=== PATIENT | female | born 1990 | race Caucasian/White ===

== ENCOUNTER 2018-10-31 03:10 | Inpatient (IN) | payer OTHER ==
[2018-10-31] MEDS ORDERED: DEXTROSE 5%-LACTATED RINGERS 1,000 ML IV SCH (04:30)
[2018-10-31 04:40] VITALS: BMI 25.8
[2018-10-31] MEDS ORDERED: AMPICILLIN - 2 GM in SODIUM CHLORIDE 100 ML IVPB ONE (04:45)
[2018-10-31] MEDS ORDERED: AMPICILLIN SODIUM 2 GM VIAL ONE (04:45)
[2018-10-31] MEDS ORDERED: OXYTOCIN 20 UNITS in 0.9% NS 20 UNIT/1,000 ML INFUS.BAG IV ONE ×2 (05:23→09:05)
[2018-10-31] MEDS ORDERED: LIDOCAINE HCL 1% PRESERVATIVE FREE - 30ML VIAL ONE (05:23)
[2018-10-31] MEDS: OXYTOCIN 20 UNITS in 0.9% NS 20 UNIT/1,000 ML INFUS.BAG IV SCH ×2 (05:35→09:16)
[2018-10-31] MEDS ORDERED: METHYLERGONOVINE MALEATE 0.2 MG/1 ML AMP IM PRN (05:43)
[2018-10-31] MEDS ORDERED: WITCH HAZEL 50% (TUCKS) 40 PAD/JAR PAD TP PRN (05:43)
[2018-10-31] MEDS ORDERED: BENZOCAINE 28 GM HEMORRHOIDAL OINTMENT TP PRN (05:43)
[2018-10-31] MEDS ORDERED: BENZOCAINE 20% 57 GM BOTTLE TP PRN (05:43)
[2018-10-31] MEDS ORDERED: PROMETHAZINE HCL 25 MG/1 ML VIAL ONE (05:44)
[2018-10-31] MEDS ORDERED: METHYLERGONOVINE MALEATE 0.2 MG/1 ML AMP IM ONE (05:44)
[2018-10-31] MEDS ORDERED: BUTORPHANOL TARTRATE 1 MG/ML VIAL ONE ×2 (05:44)
[2018-10-31] MEDS ORDERED: BUTORPHANOL TARTRATE 1 MG/ML VIAL IVPB ONE (05:45)
--- NOTE | 2018-10-31 05:48 | HP ---
Past Medical History - Admission History of Present Illness: 28yo @ 39.6wks here with regular painful ctx, SROM 4AM. No VB. +[facility] at [facility] and then traveled [place] and did not continue care. Was discharged from that practice and upon return, has not had any care.. 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: Alzheimer's, CVA, Dementia, Migraine, Multiple Sclerosis, Peripheral Neuropathy, Parkinson's, Seizure, Syncope, TIA, Vertigo, Other Cardiovascular: No: AFIB, Aneurysm, Aortic Insufficiency, Aortic Stenosis, CAD, CHF, Deep Vein Thrombosis, HTN, Hyperlipdemia, [place], Mitral Insufficiency, Mitral Stenosis, Murmur, Pulmonary Hypertension, Other Pulmonary: No: Asthma, Bronchitis, Cancer, COPD, O2 Dependent, Pneumonia, Previously Intubated, Pulmonary Embolus, Pulmonary Fibrosis, Sleep Apnea, Other Hepatobiliary: No: Cirrhosis, Cholelithiasis, Cholecystitis, Choledocholithiasis , Hepatitis A, Hepatitis B, Hepatitis C, Other Renal/: No: Renal Failure, Renal Inusuff, BPH, Cancer, Hematuria, Hemodialysis , Neurogenic Bladder, Renal Calculi, UTI, Other ...: 5 ...Para: 4 ...Term: 4 ...: 0 ...Spon : 0 ...Induced : 0 ...Multiple Gestation: 0 ...LMP: 01/25/18 ... Weeks Gestation by Dates: 39.6 ...EDC by Dates: 11/01/18 Endocrine: Yes: Hyperthyroidism - Past Surgical History Hx Myomectomy: No Hx Transabdominal Cerclage: No - Smoking History Smoking history: Never smoked Have you smoked in the past 12 months: No Aproximately how many cigarettes per day: 0 - Alcohol/Substance Use Hx Alcohol Use: No - Social History Usual Living Arrangement: Yes: With Spouse Home Medications - Allergies Allergies/Adverse Reactions: Allergies Allergy/AdvReac Type Severity Reaction Status Date / Time methimazole Allergy Verified 10/31/18 04:25 Physical Exam - Maternity Vital Signs: Vital Signs Temperature 98.0 F 10/31/18 04:28 Pulse Rate 100 H 10/31/18 04:28 Respiratory Rate 22 H 10/31/18 04:28 Blood Pressure 130/73 10/31/18 04:28 O2 Sat by Pulse Oximetry (%) Constitutional: Yes: Well Nourished, No Distress, Calm Eyes: Yes: WNL, Conjunctiva Clear, EOM Intact HENT: Yes: WNL, Atraumatic, Normocephalic Neck: Yes: WNL, Supple, Trachea Midline Cardiovascular: Yes: WNL, Regular Rate and Rhythm Breast(s): Yes: WNL - Abdominal Exam/OB Number of Fetuses: Single Regularity: Regular Intensity: Mod/Strong Category: I Accelerations: Uniform Decelerations: None - Vaginal Exam/OB Vaginal Bleediing: No Speculum Exam: No Dilatation (cm): 5 Effacement (%): 100 Amniotic Membrane Status: Ruptured Nitrazine Test: Positive Amniotic Fluid: Yes: Clear Presentation: Vertex/Position Station: -3 - Physical Exam Edema: No Assessment/Plan 28yo @ 39.6wks here in labor Admit to L&D IVFs, NPO Labs ordered given no records Amp for GBS unknown Cat I tracing Anticipate Madai Minaya MD
--- NOTE | 2018-10-31 05:51 | PN ---
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 No anesthesia. 39week gestation. No nuchal or meconium. Spontaneous delivery of anterior shoulder. placed on maternal abdomen, cord clamped and cut after 2 minutes. Weight pending. Apgars 9/9. Spontaneous delivery of placenta with 3VC. Perineum inspected, no lacerations. Fundus made firm with external uterine massage, EBL 450ml. Mother and baby doing well. Madai Minaya MD
[2018-10-31 05:52] LABS: BASO % 0.3 % (0-2.0); EOS % 1.2 % (0-4.5); HEMATOCRIT 33.7 % (32.4-45.2); HEMOGLOBIN 10.8 GM/dL (10.7-15.3); LYMPH % 22.6 % (8-40); MCH 25.8 pg (25.7-33.7); MEAN CELL VOLUME 80.4 fl (80-96); MEAN PLT VOLUME 8.9 fl (7.5-11.1); MONO % 7.7 % (3.8-10.2); NEUT % 68.2 % (42.8-82.8); PLATELET COUNT 229 K/MM3 (134-434); RBC 4.19 M/mm3 (3.60-5.2); RDW 15.2 % (11.6-15.6); WHITE BLOOD COUNT 10.2 K/mm3 (4.0-10.0)
[2018-10-31 06:07] LABS: INR 0.91 (0.83-1.09); PROTHROMBIN TIME (PATIENT) 10.7 SEC (9.7-13.0)
[2018-10-31 06:10] LABS: ACTIVATED PTT 28.9 SECONDS (25.2-36.5)
[2018-10-31 06:11] LABS: ALBUMIN 2.8 g/dl (3.4-5.0); ALK PHOS 158 U/L (45-117); ANION GAP 11 MMOL/L (8-16); BILIRUBIN,TOTAL 0.2 mg/dL (0.2-1); BLOOD UREA NITROGEN 12 mg/dL (7-18); CALCIUM 8.8 mg/dL (8.5-10.1); CHLORIDE 104 mmol/L (98-107); CO2 21 mmol/L (21-32); CREATININE 0.6 mg/dL (0.55-1.3); GLUCOSE,RANDOM 119 mg/dL (74-106); POTASSIUM 3.7 mmol/L (3.5-5.1); SGOT/AST 18 U/L (15-37); SGPT/ALT 15 U/L (13-61); SODIUM 137 mmol/L (136-145); TOT PROT 6.9 g/dl (6.4-8.2)
[2018-10-31] MEDS ORDERED: TUBERCULIN PPD 5 TU/0.1ML SYRINGE (IN PATIENT USE ONLY) ID ONE (06:30)
[2018-10-31] MEDS: FERROUS SO4 325 MG TABLET (FP) PO SCH ×2 (08:00→17:10)
[2018-10-31] MEDS ORDERED: AMPICILLIN - 1 GM in SODIUM CHLORIDE 100 ML IVPB SCH (08:45)
[2018-10-31] MEDS: PRENATAL VITAMINS W/ FOLIC ACID TABLET (FP) PO SCH (09:49)
[2018-10-31] MEDS: ACETAMINOPHEN 325 MG TABLET (FP) PO PRN ×2 (09:49→17:55)
[2018-10-31] MEDS: IBUPROFEN 600 MG TABLET (FP) PO PRN ×2 (09:49→17:56)
[2018-11-01 04:15] LABS: HBsAG SCREEN Negative (Negative)
[2018-11-01] MEDS: IBUPROFEN 600 MG TABLET (FP) PO PRN ×3 (04:54→21:04)
[2018-11-01] MEDS: ACETAMINOPHEN 325 MG TABLET (FP) PO PRN ×3 (04:54→21:03)
[2018-11-01 07:25] LABS: BASO % 0.4 % (0-2.0); EOS % 2.3 % (0-4.5); HEMOGLOBIN 9.2 GM/dL (10.7-15.3); LYMPH % 22.7 % (8-40); MCH 25.5 pg (25.7-33.7); MCHC 31.7 g/dl (32.0-36.0); MEAN CELL VOLUME 80.6 fl (80-96); MEAN PLT VOLUME 8.8 fl (7.5-11.1); MONO % 6.7 % (3.8-10.2); NEUT % 67.9 % (42.8-82.8); PLATELET COUNT 214 K/MM3 (134-434); RDW 15.6 % (11.6-15.6); WHITE BLOOD COUNT 11.6 K/mm3 (4.0-10.0)
[2018-11-01] MEDS: FERROUS SO4 325 MG TABLET (FP) PO SCH ×2 (08:39→17:32)
--- NOTE | 2018-11-01 09:24 | PN ---
Progress Note (short form) - Note Progress Note: ppd 1 doing well, no c/o , voids ok, no excess vaginal bleeding uterus firm, non tender lochia mild no calf tenderness CBC, BMP 11/01/18 05:15 10/31/18 05:00 Last Vital Signs Temp Pulse Resp BP Pulse Ox 98.4 F 85 18 107/53 L 99 11/01/18 02:00 11/01/18 02:00 11/01/18 02:00 11/01/18 02:00 10/31/18 08:00 plan ambulate , observe, d/c home in am
[2018-11-01] MEDS: PRENATAL VITAMINS W/ FOLIC ACID TABLET (FP) PO SCH (10:15)
[2018-11-01] MEDS ORDERED: SENNOSIDES/DOCUSATE COMBO (SENNA PLUS) TABLET (UD) PO PRN (22:00)
[2018-11-02] MEDS: ACETAMINOPHEN 325 MG TABLET (FP) PO PRN (05:48)
[2018-11-02] MEDS: IBUPROFEN 600 MG TABLET (FP) PO PRN (05:49)
[2018-11-02] MEDS: FERROUS SO4 325 MG TABLET (FP) PO SCH (08:31)
[2018-11-02] MEDS: PRENATAL VITAMINS W/ FOLIC ACID TABLET (FP) PO SCH (09:17)
[2018-11-02 10:04] VITALS: BP 116/80; PULSE 103; TEMP 97.9
--- NOTE | 2018-11-02 10:34 | DS ---
Physical Examination Vital Signs: Vital Signs Temperature 97.9 F 11/02/18 10:00 Pulse Rate 103 H 11/02/18 10:00 Respiratory Rate 18 11/02/18 10:00 Blood Pressure 116/80 11/02/18 10:00 O2 Sat by Pulse Oximetry (%) 99 10/31/18 08:00 Constitutional: Yes: Well Nourished, No Distress, Calm Eyes: Yes: WNL, Conjunctiva Clear, EOM Intact HENT: Yes: WNL, Atraumatic, Normocephalic Neck: Yes: WNL, Supple, Trachea Midline Cardiovascular: Yes: WNL, Regular Rate and Rhythm Respiratory: Yes: WNL, Regular, CTA Bilaterally Gastrointestinal: Yes: WNL, Normal Bowel Sounds Musculoskeletal: Yes: WNL Extremities: Yes: WNL Edema: No Integumentary: Yes: WNL Neurological: Yes: WNL, Alert, Oriented ...Motor Strength: WNL Psychiatric: Yes: WNL Labs: CBC, BMP 11/01/18 05:15 10/31/18 05:00 Discharge Summary Reason For Visit: LABOR ADMIT Hospital Course: Patient presented in active labor She had an uncomplicated She met all milestones and was discharged home in stable condition Condition: Stable - Instructions Diet, Activity, Other Instructions: Regular diet Referrals: Madai Minaya MD [Staff Physician] - Disposition: HOME - Home Medications Comprehensive Discharge Medication List: Ambulatory Orders Ibuprofen 600 mg PO Q6H PRN #30 tablet 11/02/18
== END 2018-11-02 12:40 | disposition home or self-care (01) | DRG 560 ==
LOC: UNDOADMIN 03:10 → JLDR 03:10 → J3W 09:33
PROVIDERS: ADMIT Obstetrics & Gynecology; ATTEND Obstetrics & Gynecology
PROC: 10E0XZZ Delivery of Products of Conception, External Approach (ICD-10-PCS; principal; 2018-10-31)
DX: O80 Encounter for full-term uncomplicated delivery (principal); Z3A.39 39 weeks gestation of pregnancy; Z37.0 Single live birth
CPT/HCPCS: 36415; 59409; 71046-TC-FY; 80053; 85025; 85610; 85730; 86593; 86762; 86850; 86900; 86901; 87340; 87389